=== PATIENT | female | born 1970 | race Caucasian/White ===

== ENCOUNTER 2019-01-31 12:29 | Emergency (ER) | payer OTHER ==
[~2019-01-31] VITALS: Ht 162.6 cm; Wt 63.5 kg
[2019-01-31 12:39] VITALS: BP 149/87
[2019-01-31] MEDS ORDERED: MOBIC7.5 MG PO (13:26)
== END 2019-01-31 14:00 | disposition home or self-care (01) ==
LOC: ER 12:29
DX: S63.8X1A Sprain of other part of right wrist and hand, initial encounter (principal); Z88.8 Allergy status to other drugs, medicaments and biological substances; Z98.890 Other specified postprocedural states; W01.0XXA Fall on same level from slipping, tripping and stumbling without subsequent striking against object, initial encounter; Y92.89 Other specified places as the place of occurrence of the external cause; Y93.89 Activity, other specified; Y99.8 Other external cause status